=== PATIENT | male | born 1970 | race Caucasian/White ===

== ENCOUNTER 2018-08-03 20:44 | Inpatient (IN) | payer SELFPAY ==
[~2018-08-03] VITALS: Ht 172.7 cm; Wt 64.6 kg
[2018-08-03 20:58] VITALS: Ht 172.7 cm; Wt 64.6 kg
[2018-08-04 00:18] LABS: BASOPHIL % 0.5 % (0-2)
[2018-08-04 00:25] LABS: PLATELET COUNT 500 x10^3mcL (130-400)
[2018-08-04 00:34] LABS: CALCIUM 8.2 mg/dL (8.5-10.1); CARBON DIOXIDE 28.8 mmol/L (21-32); CHLORIDE SERUM 100 mmol/L (98-107); GFR1 > 60 mL/min; GLUCOSE SERUM 108 mg/dL (74-106); POTASSIUM SERUM 4.1 mmol/L (3.5-5.1); SODIUM SERUM 138 mmol/L (136-145)
[2018-08-04 00:39] LABS: ALBUMIN 3.4 g/dL (3.4-5.0); ALKALINE PHOSPHATASE 80 U/L (46-116); ALT/SGPT 25 U/L (16-63); AST/SGOT 17 U/L (15-37); BILIRUBIN TOTAL 0.3 mg/dL (0.20-1.00); LIPASE 138 IU/L (73-393); TOTAL PROTEIN, SERUM 7.2 g/dL (6.4-8.2)
[2018-08-04 06:37] LABS: MAGNESIUM 2.1 mg/dL (1.8-2.4); PHOSPHOROUS 4.1 mg/dL (2.5-4.9)
[2018-08-04 08:11] VITALS: BP 106/66
[2018-08-04 08:21] LABS: UA SPECIFIC GRAVITY >=1.030 (1.005-1.035); microscopic required? YES; urine erythrocyte NEGATIVE (NEGATIVE)
[2018-08-04 08:33] LABS: AMPHETAMINE QUAL UR POSITIVE (See below)
[2018-08-04 11:45] VITALS: BP 103/70
[2018-08-04 17:07] VITALS: BP 106/63
[2018-08-04 20:00] VITALS: BP 110/64
[2018-08-05 00:29] LABS: BASOPHIL % 0.8 % (0-2)
[2018-08-05 00:33] LABS: PLATELET COUNT 466 x10^3mcL (130-400); RED CELL DISTRIBUTION WIDTH 18.2 % (11.5-14.5)
[2018-08-05 00:37] LABS: rbc morphology (normal/abnorm) ABNORMAL (NORMAL)
[2018-08-05 05:44] VITALS: BP 121/75
[2018-08-05 09:12] VITALS: BP 121/72
[2018-08-05 09:27] LABS: CARBON DIOXIDE 29.6 mmol/L (21-32); CHLORIDE SERUM 108 mmol/L (98-107); GFR1 > 60 mL/min; GLUCOSE SERUM 125 mg/dL (74-106); MAGNESIUM 2.1 mg/dL (1.8-2.4); PHOSPHOROUS 3.5 mg/dL (2.5-4.9); POTASSIUM SERUM 4.4 mmol/L (3.5-5.1); SODIUM SERUM 144 mmol/L (136-145)
[2018-08-05 09:41] LABS: BASOPHIL % 0.3 % (0-2); PLATELET COUNT 436 x10^3mcL (130-400); RED CELL DISTRIBUTION WIDTH 18.4 % (11.5-14.5)
[2018-08-05 13:35] VITALS: BP 115/52
[2018-08-05 17:25] VITALS: BP 104/70
[2018-08-05 21:01] VITALS: BP 98/60
[2018-08-06 05:13] VITALS: BP 120/72
[2018-08-06 06:18] LABS: BASOPHIL % 0.9 % (0-2)
[2018-08-06 06:19] LABS: CALCIUM 8.1 mg/dL (8.5-10.1); CARBON DIOXIDE 27.8 mmol/L (21-32); CHLORIDE SERUM 108 mmol/L (98-107); CREATININE SERUM 0.9 mg/dL (0.7-1.3); GFR1 > 60 mL/min; GLUCOSE SERUM 91 mg/dL (74-106); MAGNESIUM 2.4 mg/dL (1.8-2.4); PHOSPHOROUS 4.4 mg/dL (2.5-4.9); POTASSIUM SERUM 4.2 mmol/L (3.5-5.1); SODIUM SERUM 143 mmol/L (136-145)
[2018-08-06 08:13] LABS: PLATELET COUNT 481 x10^3mcL (130-400); RED CELL DISTRIBUTION WIDTH 18.4 % (11.5-14.5)
[2018-08-06] MEDS ORDERED: PRI20 PO (12:56)
[2018-08-06 13:00] VITALS: BP 125/63
[2018-08-06] MEDS ORDERED: AMO500 PO (13:00)
[2018-08-06] MEDS ORDERED: BIA500 PO (13:00)
== END 2018-08-06 13:41 | disposition home or self-care (01) | DRG 383 ==
LOC: ED 20:44 → DU 08-04 05:26 → EDBEDREQTM 08-04 05:33 → EDBEDREQSVC 08-04 05:33 → EDBEDREQ 08-04 05:33 → DU 08-04 08:10
PROVIDERS: Internal Medicine; Internal Medicine Gastroenterology; Student in an Organized Health Care Education/Training Program
PROC: 0DB68ZX Excision of Stomach, Via Natural or Artificial Opening Endoscopic, Diagnostic (ICD-10-PCS; principal; 2018-08-06 07:30)
PROC: 0DJD8ZZ Inspection of Lower Intestinal Tract, Via Natural or Artificial Opening Endoscopic (ICD-10-PCS; 2018-08-06 07:30)
DX: K25.9 Gastric ulcer, unspecified as acute or chronic, without hemorrhage or perforation (principal); N17.0 Acute kidney failure with tubular necrosis; E44.1 Mild protein-calorie malnutrition; K64.8 Other hemorrhoids; K57.90 Diverticulosis of intestine, part unspecified, without perforation or abscess without bleeding; D64.9 Anemia, unspecified; R73.03 Prediabetes; K59.00 Constipation, unspecified; F17.210 Nicotine dependence, cigarettes, uncomplicated; F15.10 Other stimulant abuse, uncomplicated; F12.10 Cannabis abuse, uncomplicated; Z71.3 Dietary counseling and surveillance; E83.51 Hypocalcemia; B96.81 Helicobacter pylori [H. pylori] as the cause of diseases classified elsewhere; Z68.23 Body mass index [BMI] 23.0-23.9, adult
CPT/HCPCS: 43235; 45378; 83880; C9113; J1200; J1610; J2250; J2310; J2405; J2765; J3010; J3490; J7030; J7050; P9016; Q0163; Q9967

== ENCOUNTER 2018-09-24 10:35 | Emergency (ER) | payer MEDICAID ==
[~2018-09-24] VITALS: Ht 172.7 cm; Wt 70.3 kg
[~2018-09-24 10:35] MED LIST: AMO500 PO; BIA500 PO; PRI20 PO
[2018-09-24 10:45] VITALS: Ht 172.7 cm; Wt 70.3 kg
[2018-09-24 11:34] LABS: CALCIUM 8.1 mg/dL (8.5-10.1); CARBON DIOXIDE 31.6 mmol/L (21-32); CHLORIDE SERUM 103 mmol/L (98-107); CREATININE SERUM 0.9 mg/dL (0.7-1.3); GFR1 > 60 mL/min; GLUCOSE SERUM 121 mg/dL (74-106); POTASSIUM SERUM 4.3 mmol/L (3.5-5.1); SODIUM SERUM 141 mmol/L (136-145)
[2018-09-24 11:38] LABS: ALBUMIN 3.5 g/dL (3.4-5.0); ALKALINE PHOSPHATASE 86 U/L (46-116); AST/SGOT 16 U/L (15-37); BILIRUBIN TOTAL 0.18 mg/dL (0.20-1.00); LIPASE 210 IU/L (73-393); TOTAL PROTEIN, SERUM 7.2 g/dL (6.4-8.2)
[2018-09-24 11:45] LABS: BASOPHIL % 1.2 % (0-2)
[2018-09-24 11:49] LABS: PLATELET COUNT 534 x10^3mcL (130-400); RED CELL DISTRIBUTION WIDTH 19.6 % (11.5-14.5)
[2018-09-24 11:50] VITALS: BP 133/83
[2018-09-24 11:57] LABS: ALT/SGPT 23 U/L (16-63)
== END 2018-09-24 12:42 | disposition home or self-care (01) ==
LOC: ED 10:35
PROVIDERS: Emergency Medicine
DX: K27.9 Peptic ulcer, site unspecified, unspecified as acute or chronic, without hemorrhage or perforation (principal); D64.9 Anemia, unspecified; F17.210 Nicotine dependence, cigarettes, uncomplicated
CPT/HCPCS: 99406; C9113; J2270; J2405; J7030

== ENCOUNTER 2018-11-26 23:04 | Inpatient (IN) | payer OTHER ==
[~2018-11-26] VITALS: Ht 172.7 cm; Wt 69.1 kg
[2018-11-26 23:39] VITALS: Ht 172.7 cm; Wt 69.1 kg
[2018-11-27 00:47] LABS: CALCIUM 8.4 mg/dL (8.5-10.1); CARBON DIOXIDE 28.3 mmol/L (21-32); CHLORIDE SERUM 105 mmol/L (98-107); CREATININE SERUM 1.1 mg/dL (0.7-1.3); GFR1 > 60 mL/min; GLUCOSE SERUM 122 mg/dL (74-106); SODIUM SERUM 137 mmol/L (136-145)
[2018-11-27 00:51] LABS: ALKALINE PHOSPHATASE 65 U/L (46-116); ALT/SGPT 18 U/L (16-63); AST/SGOT 20 U/L (15-37); BILIRUBIN TOTAL 0.1 mg/dL (0.20-1.00); LIPASE 118 IU/L (73-393); TOTAL PROTEIN, SERUM 6.8 g/dL (6.4-8.2)
[2018-11-27 00:52] LABS: ALBUMIN 3.3 g/dL (3.4-5.0)
[2018-11-27 01:32] LABS: BASOPHIL % 0.3 % (0-2)
[2018-11-27 01:34] LABS: PLATELET COUNT 459 x10^3mcL (130-400); RED CELL DISTRIBUTION WIDTH 20.2 % (11.5-14.5)
[2018-11-27 01:36] LABS: rbc morphology (normal/abnorm) ABNORMAL (NORMAL)
[2018-11-27 02:53] VITALS: BP 122/95
[2018-11-27 02:54] LABS: CHOLESTEROL/HDL RATIO 4.2; PHOSPHOROUS 3.9 mg/dL (2.5-4.9)
[2018-11-27 04:48] LABS: microscopic required? NO
[2018-11-27 05:18] LABS: UA SPECIFIC GRAVITY 1.025 (1.005-1.035); urine erythrocyte NEGATIVE (NEGATIVE)
[2018-11-27 05:23] LABS: AMPHETAMINE QUAL UR POSITIVE (See below)
[2018-11-27 06:00] VITALS: BP 116/76
[2018-11-27 07:43] VITALS: BP 126/73
[2018-11-27 11:08] VITALS: BP 115/74
[2018-11-27 16:11] VITALS: BP 114/72
[2018-11-27 16:31] LABS: BASOPHIL % 1.2 % (0-2); PLATELET COUNT 458 x10^3mcL (130-400); RED CELL DISTRIBUTION WIDTH 24.6 % (11.5-14.5)
[2018-11-27 20:29] VITALS: BP 102/52
[2018-11-28 05:37] VITALS: BP 113/68
[2018-11-28 08:21] LABS: BASOPHIL % 0.8 % (0-2)
[2018-11-28 08:30] LABS: PLATELET COUNT 549 x10^3mcL (130-400); RED CELL DISTRIBUTION WIDTH 22.1 % (11.5-14.5)
[2018-11-28 09:37] LABS: CALCIUM 7.9 mg/dL (8.5-10.1); CARBON DIOXIDE 28.3 mmol/L (21-32); CHLORIDE SERUM 106 mmol/L (98-107); CREATININE SERUM 0.9 mg/dL (0.7-1.3); GFR1 > 60 mL/min; GLUCOSE SERUM 100 mg/dL (74-106); MAGNESIUM 2.1 mg/dL (1.8-2.4); PHOSPHOROUS 3.8 mg/dL (2.5-4.9); POTASSIUM SERUM 4.1 mmol/L (3.5-5.1); SODIUM SERUM 142 mmol/L (136-145)
[2018-11-28 10:13] VITALS: BP 126/71
[2018-11-28 10:19] LABS: rbc morphology (normal/abnorm) ABNORMAL (NORMAL); target cell (codocyte) 1+; tear drop cell (dacryocyte) 1+
[2018-11-28] MEDS ORDERED: AMO500 PO (10:58)
[2018-11-28] MEDS ORDERED: CLARITHROMYCIN500 M1 PO (11:00)
[2018-11-28] MEDS ORDERED: FER300 PO (11:00)
[2018-11-28] MEDS ORDERED: FLAGYL500 MG PO (11:01)
[2018-11-28 11:33] VITALS: BP 126/71
[2018-11-28] MEDS ORDERED: PANTOPRAZOLE SO40 M1 PO (13:41)
== END 2018-11-28 13:59 | disposition home or self-care (01) | DRG 243 ==
LOC: ED 23:04 → MU 11-27 02:15
PROVIDERS: Emergency Medicine; Internal Medicine; ADMIT Internal Medicine
PROC: 0DB68ZX Excision of Stomach, Via Natural or Artificial Opening Endoscopic, Diagnostic (ICD-10-PCS; principal; 2018-11-27 10:00)
PROC: 30233N1 Transfusion of Nonautologous Red Blood Cells into Peripheral Vein, Percutaneous Approach (ICD-10-PCS; 2018-11-27 10:00)
DX: K22.10 Ulcer of esophagus without bleeding (principal); N17.9 Acute kidney failure, unspecified; K29.71 Gastritis, unspecified, with bleeding; E11.65 Type 2 diabetes mellitus with hyperglycemia; E83.51 Hypocalcemia; E44.1 Mild protein-calorie malnutrition; D50.0 Iron deficiency anemia secondary to blood loss (chronic); F12.10 Cannabis abuse, uncomplicated; E78.1 Pure hyperglyceridemia; F15.10 Other stimulant abuse, uncomplicated; K44.9 Diaphragmatic hernia without obstruction or gangrene; K21.9 Gastro-esophageal reflux disease without esophagitis; F17.210 Nicotine dependence, cigarettes, uncomplicated; E86.0 Dehydration
CPT/HCPCS: 43235; 82962; C9113; J1200; J1610; J2250; J2270; J2310; J2405; J3010; J3490; J7030; P9016; Q0092

== ENCOUNTER 2019-01-07 12:24 | Emergency (ER) | payer OTHER ==
[~2019-01-07] VITALS: Ht 170.2 cm; Wt 68.0 kg
[~2019-01-07 12:24] MED LIST changes: +CLARITHROMYCIN500 M1 PO; +FER300 PO; +FLAGYL500 MG PO; +PANTOPRAZOLE SO40 M1 PO
[2019-01-07 12:52] VITALS: Ht 170.2 cm; Wt 68.0 kg
[2019-01-07 13:57] LABS: PLATELET COUNT 569 x10^3mcL (130-400); RED CELL DISTRIBUTION WIDTH 23.8 % (11.5-14.5)
[2019-01-07 14:03] LABS: CALCIUM 8.4 mg/dL (8.5-10.1); CHLORIDE SERUM 105 mmol/L (98-107); CREATININE SERUM 1.1 mg/dL (0.7-1.3); GFR1 > 60 mL/min; GLUCOSE SERUM 107 mg/dL (74-106); POTASSIUM SERUM 4.4 mmol/L (3.5-5.1); SODIUM SERUM 142 mmol/L (136-145)
[2019-01-07 14:07] LABS: ALBUMIN 3.8 g/dL (3.4-5.0); ALKALINE PHOSPHATASE 73 U/L (46-116); ALT/SGPT 66 U/L (16-63); AMYLASE 28 U/L (25-115); AST/SGOT 54 U/L (15-37); BILIRUBIN TOTAL 0.21 mg/dL (0.20-1.00); LIPASE 128 IU/L (73-393); TOTAL PROTEIN, SERUM 7.7 g/dL (6.4-8.2)
[2019-01-07 14:38] LABS: BAND NEUTROPHIL 0 % (0-10); SEGMENTED NEUTROPHILS 92 % (37-75)
[2019-01-07 14:39] LABS: MONOCYTE 3 % (0-7); rbc morphology (normal/abnorm) ABNORMAL (NORMAL)
[2019-01-07 15:08] VITALS: BP 131/82
[2019-01-08] MEDS ORDERED: ZOF4 PO (11:28)
[2019-01-08] MEDS ORDERED: ULTRAM50 MG PO (11:28)
[2019-01-08] MEDS ORDERED: MAGL PO (11:29)
== END 2019-01-07 15:08 | disposition home or self-care (01) ==
LOC: ED 12:24
PROVIDERS: Emergency Medicine
DX: K59.00 Constipation, unspecified (principal); K21.9 Gastro-esophageal reflux disease without esophagitis
CPT/HCPCS: J1885; J2405; Q0092

== ENCOUNTER 2019-01-08 08:56 | Inpatient (IN) | payer OTHER ==
[~2019-01-08] VITALS: Ht 170.2 cm; Wt 60.1 kg
[2019-01-08 09:07] VITALS: Ht 170.2 cm; Wt 60.1 kg
[2019-01-08 10:24] LABS: BASOPHIL % 0.4 % (0-2)
[2019-01-08 10:25] LABS: RED CELL DISTRIBUTION WIDTH 23.4 % (11.5-14.5)
[2019-01-08 10:32] LABS: PLATELET COUNT 519 x10^3mcL (130-400)
[2019-01-08 10:34] LABS: rbc morphology (normal/abnorm) ABNORMAL (NORMAL)
[2019-01-08 10:46] LABS: CALCIUM 7.4 mg/dL (8.5-10.1); CARBON DIOXIDE 32.4 mmol/L (21-32); CHLORIDE SERUM 102 mmol/L (98-107); CREATININE SERUM 0.8 mg/dL (0.7-1.3); GFR1 > 60 mL/min; GLUCOSE SERUM 108 mg/dL (74-106); POTASSIUM SERUM 4.8 mmol/L (3.5-5.1); SODIUM SERUM 138 mmol/L (136-145)
[2019-01-08 10:52] LABS: ALKALINE PHOSPHATASE 57 U/L (46-116); ALT/SGPT 55 U/L (16-63); AST/SGOT 38 U/L (15-37); LIPASE 131 IU/L (73-393); TOTAL PROTEIN, SERUM 6.4 g/dL (6.4-8.2)
[2019-01-08 10:59] LABS: ALBUMIN 3.1 g/dL (3.4-5.0)
[2019-01-08] MEDS ORDERED: ULTRAM50 MG PO (11:28)
[2019-01-08] MEDS ORDERED: ZOF4 PO (11:28)
[2019-01-08] MEDS ORDERED: MAGL PO (11:29)
[2019-01-08 12:36] VITALS: BP 138/71
[2019-01-08 14:11] LABS: CHOLESTEROL/HDL RATIO 3.5
[2019-01-08 15:30] VITALS: BP 122/68
[2019-01-08 19:55] VITALS: BP 124/86
[2019-01-09 04:44] VITALS: BP 124/72
[2019-01-09 07:26] LABS: BASOPHIL % 0.6 % (0-2)
[2019-01-09 07:29] LABS: PLATELET COUNT 483 x10^3mcL (130-400); RED CELL DISTRIBUTION WIDTH 24.3 % (11.5-14.5)
[2019-01-09 07:32] LABS: CALCIUM 7.9 mg/dL (8.5-10.1); CARBON DIOXIDE 28.3 mmol/L (21-32); CHLORIDE SERUM 105 mmol/L (98-107); CREATININE SERUM 0.8 mg/dL (0.7-1.3); GFR1 > 60 mL/min; GLUCOSE SERUM 90 mg/dL (74-106); POTASSIUM SERUM 4.7 mmol/L (3.5-5.1); SODIUM SERUM 140 mmol/L (136-145)
[2019-01-09 08:21] VITALS: BP 125/77
[2019-01-09 09:51] LABS: microscopic required? NO
[2019-01-09 10:00] LABS: target cell (codocyte) 1+
[2019-01-09 10:01] LABS: ovalocyte/elliptocyte 1+; rbc morphology (normal/abnorm) ABNORMAL (NORMAL); tear drop cell (dacryocyte) 1+
[2019-01-09 10:16] LABS: UA SPECIFIC GRAVITY 1.015 (1.005-1.035); urine erythrocyte NEGATIVE (NEGATIVE)
[2019-01-09 11:52] VITALS: BP 142/78
[2019-01-09 18:28] VITALS: BP 111/65
[2019-01-09 19:19] LABS: TOTAL IRON BINDING CAPACITY 333 ug/dL (250-450)
[2019-01-09 19:20] LABS: IRON 10 ug/dL (65-170)
[2019-01-09 19:23] LABS: AMPHETAMINE QUAL UR POSITIVE (See below)
[2019-01-09 19:57] VITALS: BP 114/65
[2019-01-10 05:01] VITALS: BP 124/79
[2019-01-10 08:25] VITALS: BP 110/68
[2019-01-10 08:27] LABS: PLATELET COUNT 476 x10^3mcL (130-400); RED CELL DISTRIBUTION WIDTH 25.9 % (11.5-14.5)
[2019-01-10 08:36] LABS: CALCIUM 7.9 mg/dL (8.5-10.1); CARBON DIOXIDE 31.1 mmol/L (21-32); CHLORIDE SERUM 107 mmol/L (98-107); CREATININE SERUM 0.8 mg/dL (0.7-1.3); GFR1 > 60 mL/min; GLUCOSE SERUM 123 mg/dL (74-106); POTASSIUM SERUM 4.1 mmol/L (3.5-5.1); SODIUM SERUM 141 mmol/L (136-145)
[2019-01-10 09:18] LABS: ATYPICAL LYMPH 3 %; BAND NEUTROPHIL 0 % (0-10); BASOPHIL 0 % (0-2); MONOCYTE 2 % (0-7); SEGMENTED NEUTROPHILS 85 % (37-75)
[2019-01-10 09:19] LABS: rbc morphology (normal/abnorm) ABNORMAL (NORMAL)
[2019-01-10 09:21] LABS: PLATELET MORPHOLOGY PLATELETS INCREASED; target cell (codocyte) 1+
[2019-01-10 10:23] VITALS: BP 110/68
== END 2019-01-10 11:27 | disposition home or self-care (01) | DRG 241 ==
LOC: ED 08:56 → EDBD 08:56 → DU 10:59
PROVIDERS: Emergency Medicine; Internal Medicine Gastroenterology; ADMIT General Practice
PROC: 30233N1 Transfusion of Nonautologous Red Blood Cells into Peripheral Vein, Percutaneous Approach (ICD-10-PCS; principal; 2019-01-08)
PROC: 0DJ08ZZ Inspection of Upper Intestinal Tract, Via Natural or Artificial Opening Endoscopic (ICD-10-PCS; 2019-01-09)
DX: K29.71 Gastritis, unspecified, with bleeding (principal); E44.1 Mild protein-calorie malnutrition; D50.0 Iron deficiency anemia secondary to blood loss (chronic); R06.6 Hiccough; R10.13 Epigastric pain; F12.10 Cannabis abuse, uncomplicated; F15.10 Other stimulant abuse, uncomplicated; Z87.891 Personal history of nicotine dependence; Z53.29 Procedure and treatment not carried out because of patient's decision for other reasons
CPT/HCPCS: 43235; 83880; C9113; J1200; J1610; J2250; J2310; J2405; J3010; J3490; J7030; J7040; J8597; P9016; Q0161

== ENCOUNTER 2019-05-28 21:05 | Inpatient (IN) | payer OTHER ==
[~2019-05-28] VITALS: Ht 177.8 cm; Wt 68.5 kg
[~2019-05-28 21:05] MED LIST changes: +MAGL PO; +ULTRAM50 MG PO; +ZOF4 PO
[2019-05-28 21:14] VITALS: Ht 177.8 cm; Wt 68.5 kg
[2019-05-28 22:17] LABS: BASOPHIL % 0.3 % (0-2); PLATELET COUNT 439 x10^3mcL (130-400); RED CELL DISTRIBUTION WIDTH 23.5 % (11.5-14.5)
[2019-05-28 22:20] LABS: CALCIUM 8.6 mg/dL (8.5-10.1); CARBON DIOXIDE 29.4 mmol/L (21-32); CHLORIDE SERUM 103 mmol/L (98-107); GFR1 > 60 mL/min; GLUCOSE SERUM 114 mg/dL (74-106); POTASSIUM SERUM 3.9 mmol/L (3.5-5.1); SODIUM SERUM 139 mmol/L (136-145)
[2019-05-28 22:25] LABS: ALKALINE PHOSPHATASE 62 U/L (46-116); ALT/SGPT 18 U/L (16-63); AST/SGOT 9 U/L (15-37); BILIRUBIN TOTAL 0.15 mg/dL (0.20-1.00); TOTAL PROTEIN, SERUM 6.4 g/dL (6.4-8.2)
[2019-05-28 22:28] LABS: rbc morphology (normal/abnorm) ABNORMAL (NORMAL)
[2019-05-28 22:29] LABS: ALBUMIN 3.2 g/dL (3.4-5.0)
--- NOTE | 2019-05-28 22:43 | NUR ---
PT RESTING IN BED, AAOX4 WITH C/O 8/10 GENERALIZED ABD PAIN X 1 WEEK WITH N/V. PT ALSO WITH C/O CONSTIPATION FOR 2-3 DAYS WITH DARK STOOLS PRIOR X 1 WEEK AND FEVER/CHILLS X 4 DAYS. PT DENIES ANY RECENT RESP ILLNESS OR PAINFUL URINATION. PT ALSO DENIES ANY RECENT TRAUMA/INJURY. PT STATES 'I HAVE BEEN VOMITING COFFEE GROUNDS'. SIGNIFICANT OTHER AT BEDSIDE.
--- NOTE | 2019-05-28 23:58 | NUR ---
PT RESTING IN BED WITH NO SIGNS OF DISTRESS AT THIS TIME. FAMILY AT BEDSIDE.
[2019-05-29] VITALS (10 sets, daily range): BP systolic 97–126; BP diastolic 62–79
--- NOTE | 2019-05-29 00:11 | NUR ---
REPORT GIVEN TO NICO MARY.
--- NOTE | 2019-05-29 00:35 | NUR ---
RECEIVED PT FROM ER VIA GURENY ACCOMPANIED WITH NURSE AND EMT, PT SEEN, ALERT AND ORIENTED, DENIES HEADACHE OR DIZZINESS, BREATHING EVEN AND UNLABORED, LUNG SOUNDS CLEAR, ON ROOM AIR WITH SPO2:98%, NO RESP DISTRESS NOTED, SL TO LFA, PULSES PALPABLE, NO EDEMA NOTED, ON TELE#2 ST, DENIES CHEST PAIN, GENERALIZED WEAKNESS, ABD DISTENDED BUT SOFT, TENDER TO TOUCH, DENIES ANY PROBLEM WITH VOIDING, NO DISTRESS NOTED, WILL KEEP TO MONITOR.
[2019-05-29 00:37] LABS: CHOLESTEROL/HDL RATIO 4.6
[2019-05-29 00:39] LABS: T3 TOTAL 0.97 ng/mL
[2019-05-29 01:04] LABS: FREE T4 0.82 ng/dL (0.76-1.46); T4(THYROXINE) 6.2 ug/dL (4.7-13.3)
--- NOTE | 2019-05-29 01:49 | NUR ---
PT AAOX4. PT MADE AWARE OF BLOOD TRANSFUSION AND SIDE EFFECTS/REACTIONS. PT VERBALIZED UNDERSTANDING. VS STABLE. BLOOD TRANSFUSE STARTED AT 0130. STAYED WITH PT AT BEDSIDE FOR FIRST 15 MIN, NO REACTION. VS RECHECKED AND STABLE. WILL CONTINUE WITH BLOOD TRANSFUSION. NO CALL BUTTON WITHIN REACH. SAFETY PRECAUTIONS IN PLACE. WILL CONTINUE TO MONITOR.
--- NOTE | 2019-05-29 02:18 | NUR ---
PER DR CARROLL, BLOOD TRANSFUSION ORDER IS FOR 2 UNITS TOTAL.
--- NOTE | 2019-05-29 04:40 | NUR ---
FIRST UNIT OF BLOOD TRANSFUSION COMPLETED AT THIS TIME. NO ADVERSE REACTION NOTED. PER PT HE FEELS FINE. NO SIGNS OF DISTRESS. VS STABLE. MEDICATED PER EMAR.
--- NOTE | 2019-05-29 05:45 | NUR ---
PT VS STABLE. SECOND UNIT OF BLOOD TRANSFUING AT THIS TIME. PT MADE AWARE OF POSSIBLE REACTIONS AND SIDE EFFECTS. PT VERBALIZED UNDERSTANDING. STAYED WITH PT FOR THE FIRST 15 MINUTES, NO REACTION NOTED. VS STABLE. CALL BUTTON WITHIN REACH. SAFETY PRECAUTIONS IN PLACE. WILL CONTINUE TO MONITOR.
[2019-05-29 06:31] LABS: CALCIUM 8.1 mg/dL (8.5-10.1); CARBON DIOXIDE 26.6 mmol/L (21-32); CHLORIDE SERUM 105 mmol/L (98-107); CREATININE SERUM 0.9 mg/dL (0.7-1.3); GFR1 > 60 mL/min; GLUCOSE SERUM 86 mg/dL (74-106); POTASSIUM SERUM 4.2 mmol/L (3.5-5.1); SODIUM SERUM 140 mmol/L (136-145)
--- NOTE | 2019-05-29 06:41 | NUR ---
PT SLEPT ON AND OFF THROUGHOUT THE NIGHT WITH NO SIGNS OF DISTRESS. BREATHING EVEN AND UNLABORED ON RA, WITH NO SOB NOTED. IV PATENT AND INFUSING WELL. BLOOD TRANSFUSION CONTINUE TO INFUSE AT THIS TIME. NO ADVERSE REACTION. PT MEDICATED PER EMAR. NO SIGNS OF ACUTE DISTRESS. CALL BUTTON WITIN REACH. SAFETY PRECAUTIONS IN PLACE. WILL CONTINUE TO MONITOR AND ENDORSE CARE TO DAY SHIFT RN.
--- NOTE | 2019-05-29 07:29 | NUR ---
PT IN NO DISTRESS. ENDORSED CARE TO DAY SHIFT RN, ALL QUESTIONS ADDRESSED.
--- NOTE | 2019-05-29 07:54 | NUR ---
RECEIVED PATIENT FROM TYRA WALSH. PATIENT CURRENTLY SLEEPING IN BED, NO S/S OF PAIN OR SOB. BLOOD TRANSFUSION CURRENTLY INFUSING, NO SIGNS OF ADVERSE REACTIONS. WILL RETURN TO SPEAK WITH PATIENT ABOUT PLAN OF CARE TODAY, PATIENT STILL NPO. CALL LIGHT IN REACH.
[2019-05-29 08:44] LABS: BASOPHIL % 0.5 % (0-2); PLATELET COUNT 397 x10^3mcL (130-400)
[2019-05-29 08:48] LABS: RED CELL DISTRIBUTION WIDTH 23.7 % (11.5-14.5)
--- NOTE | 2019-05-29 10:07 | NUR ---
DR ABDI IN TO SPEAK WITH PATIENT ABOUT EGD. PATIENT AGREES, CONSENT SIGNED AND DOWN TO GI LAB. PATIENT REPORT GIVEN AT 1008 FOR PATIENT RETURN TO ROOM. WILL CALL CT FOR ADDITIONAL TEST. WILL AWAIT FOR PATIENT RETURN.
--- NOTE | 2019-05-29 10:14 | NUR ---
PATIENT HAS RETURNED TO UNIT. VS STABLE. WILL CONTACT CT FOR SCAN.
--- NOTE | 2019-05-29 10:48 | NUR ---
PATIENT RETURNED TO UNIT FROM CT SCAN. PATIENT SLEEPING NO SIGNS OF DISCOMFORT OR PAIN AT THIS TIME. CALL LIGHT IN REACH.
[2019-05-29 11:13] LABS: ovalocyte/elliptocyte 1+; rbc morphology (normal/abnorm) ABNORMAL (NORMAL); target cell (codocyte) 1+
--- NOTE | 2019-05-29 12:33 | NUR ---
PATIENT CONTINUES TO BE SLEEPING IN BED, NO S/S OF DISTRESS, PAIN, OR SOB. WILL CONTINUE TO MONITOR. CALL LIGHT IN REACH.
[2019-05-29 13:44] LABS: microscopic required? NO
[2019-05-29 14:07] LABS: urine erythrocyte NEGATIVE (NEGATIVE)
[2019-05-29 14:15] LABS: AMPHETAMINE QUAL UR POSITIVE (See below)
[2019-05-29 14:22] LABS: BASOPHIL % 0.4 % (0-2); PLATELET COUNT 399 x10^3mcL (130-400)
[2019-05-29 14:33] LABS: ALKALINE PHOSPHATASE 54 U/L (46-116); ALT/SGPT 21 U/L (16-63); AST/SGOT 14 U/L (15-37); BILIRUBIN TOTAL 0.4 mg/dL (0.20-1.00); CALCIUM 8.2 mg/dL (8.5-10.1); CARBON DIOXIDE 29.9 mmol/L (21-32); CHLORIDE SERUM 102 mmol/L (98-107); GFR1 > 60 mL/min; GLUCOSE SERUM 124 mg/dL (74-106); SODIUM SERUM 139 mmol/L (136-145)
--- NOTE | 2019-05-29 15:34 | NUR ---
THIS NURSE PREPARE FURTHER BLOOD TRANSFUSION PER DR MENDOZA. BLOOD WAS BEING PREPARED, LAB RESULTS CAME IN FOR HGB OF 8.2. NOTIFIED DR MENDOZA, DR VERDE, AND CHARGE NURSE NITHIN. CALL PLACED TO BLOOD BANK AND CHAIR PAD MAKER STATES BLOOD CAN BE RETURNED. NOTIFIED DR MENDOZA, DR VERDE, AND CHARGE NURSE NITHIN. DR MENDOZA AND THIS NURSE SPOKE WITH PATIENT AND FRIEND ABOUT BLOOD LEVELS AND PATIENT VERBALIZED UNDERSTANDING. CALL LIGHT IN REACH AT THIS TIME.
--- NOTE | 2019-05-29 18:33 | NUR ---
PATIENT SEATED IN BED WITH NO COMPLAINTS. PATIENT TOLERATING DINNER TRAY. WILL ENDORSE TO ONCOMING SHIFT. CALL LIGHT IN REACH AT THIS TIME.
--- NOTE | 2019-05-29 19:32 | NUR ---
RECEIVED PT FROM DAY SHIFT RN. PT AAOX4 DENIES HEADACHE OR DIZZINESS. BREATHING EVEN AND UNLABORED WITH NO SOB NOTED. TELE #2 SR, HR 97. PT DENIES CHEST PAIN OR PRESSURE. IV PATENT, INFUSING WELL. PT DENIES ANY ABD PAIN/N/V AT THIS TIME. GENERALIZED WEAKNESS. PT AMBULATORY. CALL BUTTON WITHIN REACH. SAFETY PRECAUTIONS IN PLACE. WILL CONTINUE TO MONITOR.
--- NOTE | 2019-05-30 01:13 | NUR ---
PT RESTING, BREATHING EVEN AND UNLABORED. NO SOB NOTED. NO SIGNS OF DISTRESS NOTED. CALL BUTTON WITHIN REACH. SAFETY PRECAUTIONS IN PLACE.
--- NOTE | 2019-05-30 03:00 | NUR ---
PT RESTING, BREATHING EVEN AND UNLABORED ON NC 3L/MIN WITH NO SOB NOTED. ASPIRATION PRECAUTIONS IN PLACE. SOFT BILATERAL WRITST RESTRAINTS ON. SKIN/CIRCULATION WNL. SAFETY PRECAUTIONS IN PLACE. SEIZURE PRECAUTIONS IN PLACE. WILL CONTINUE TO MONITOR.
--- NOTE | 2019-05-30 03:30 | NUR ---
PT RESTING, BREATHING EVEN AND UNLABORED. NO SOB NOTED. NO SIGNS OF DISTRESS NOTED. CALL BUTTON WITHIN REACH. SAFETY PRECAUTIONS IN PLACE.
--- NOTE | 2019-05-30 05:09 | NUR ---
PT SLEPT ON AND OFF THROUGHOUT THE NIGHT WITH NO SIGNS OF DISTRESS. BREATHING EVEN AND UNLABORED ON RA, WITH NO SOB NOTED. IV PATENT AND INFUSING WELL. PT MEDICATED PER EMAR. NO SIGNS OF ACUTE DISTRESS. CALL BUTTON WITIN REACH. SAFETY PRECAUTIONS IN PLACE. WILL CONTINUE TO MONITOR AND ENDORSE CARE TO DAY SHIFT RN.
[2019-05-30 05:22] VITALS: BP 115/71
[2019-05-30 06:55] LABS: CALCIUM 7.7 mg/dL (8.5-10.1); CHLORIDE SERUM 105 mmol/L (98-107); GFR1 > 60 mL/min; GLUCOSE SERUM 136 mg/dL (74-106); MAGNESIUM 2.4 mg/dL (1.8-2.4); PHOSPHOROUS 3.8 mg/dL (2.5-4.9); POTASSIUM SERUM 3.6 mmol/L (3.5-5.1); SODIUM SERUM 141 mmol/L (136-145)
--- NOTE | 2019-05-30 07:14 | NUR ---
PT RESTING, NO SIGNS OF ACUTE DISTRESS NOTED. ENDORSED CARE TO DAY SHIFT RN, ALL QUESTIONS ADDRESSED.
--- NOTE | 2019-05-30 08:00 | NUR ---
PATIENT RECEIVED ANXIOUS ABOUT HIS FOOD. HE STATES A NURSE CAME IN AND STATES HE CAN HAVE A REGULAR DIET AGAIN. NO ORDERS YET NOTED AND PATIENT DID HAVE AN ORDER FOR IV FLUIDS CHANGED BUT NO DIET ORDER FROM THE BRAT DIET OF THE JPREVIOUS NIGHT. PATIENT HAS BEEN WITH CLEAR BREATH SOUNDS AND HAS BEEN ON PROTONIX AND SENOKOT AND HAS NO ACTIVE BLEEDING AT THIS TIME. ALETA TWIHT HISTORY OF GERD AND METH AND MARIJUANA USE AND HAS BEEN AMBULATORY ADN NO WEAKNESS NOTED AT THIS TIME . HE TOLERATED OOB TO THE RESTROOM AND BACK. PATIENTS [facility]S ARE [facility] 8.01/09 AND HAD BLOOD THIS ADMISSION FOR LOW HEMAGLOBIN. PATILALITO TAHS EGD AND THE RESULTS SHOWA HIATAL HERANI AND NO ACTIVE BLEEDING WAS FOUND. APTIEN TIS FO RCAPSULE ENDOSCOPY AN OUTPATIENT. PATIENT AHS NOTED HISTOYR OF GASTRIC ULCER AND DIVERTICULOSIS. PATIENT HAS A NON OBSTRUCTIVE KIDNEY STONE AND CONTINUE DON FERRLECIT AND PROTONIX ORDERED. WILL CONTINUE TO MONITOR. VITALS THIS AM AT 98.0, 80, 19, 115/71, 97%.
--- NOTE | 2019-05-30 08:13 | NUR ---
CANCELLATION REQUESTED FOR ECHOCARDIOGRAM
[2019-05-30 09:21] VITALS: BP 112/73
--- NOTE | 2019-05-30 09:58 | NUR ---
ADVISED THE PATIENT THAT NO ORDER YET NOTED FOR THE DIET CHANGE. WILL NEED TO CALL THE HAIR ROOTING MACHINE OPERATOR PER THE PATIENT REQUEST.
[2019-05-30 12:44] VITALS: BP 120/75
--- NOTE | 2019-05-30 13:00 | NUR ---
TOLERATED DIET AND DENIES ANY NAUSEA, VOMITING OR DIARRHEA. NO ACTIVE BLEEDING NOTED. PATIENT HAS TOLERATE DOOB WELL AND DENIES ANY ACUTE PAIN. WILL CONTINUE TO MONITOR.
--- NOTE | 2019-05-30 13:14 | NUR ---
Consult: Malnourished Comment: decr. caloric intake, BMI 21, drinks Ensure at home, plz prov recs. Spoke with the patient and the patient denies having Ensure drinks at home. Offered nutrition education on iron rich foods for anemia but patient declined. Offered high calorie foods to pateint but patient declined as well. He said if he did have any nutrition questions that he would let the dietitians know. Per patient and bed huddles today patient will be discharged.
[2019-05-30] MEDS ORDERED: FERROUS SULFAT325 M2 PO (14:56)
[2019-05-30] MEDS ORDERED: ATORVASTATIN CA40 M1 PO (14:57)
[2019-05-30] MEDS ORDERED: REGLAN10 M1 PO (15:04)
[2019-05-30 15:19] VITALS: BP 120/75
--- NOTE | 2019-05-30 16:02 | NUR ---
DISCHARGED TO HOME WITH ALL BELONGINGS. IV AND TELE REMOVED PRIOR TO DISCHARGE. PATIENT TO FOLLOW UP WIT CAPSULE ENDO FOR VIEWING OF THE BOWEL AND RULING OUT SORCE OF THE GI BLEED. NO ACTIVE BLEEDING AT THIS TIME.
== END 2019-05-30 15:59 | disposition home or self-care (01) | DRG 241 ==
LOC: ED 21:05 → DU 23:42
PROVIDERS: Internal Medicine Gastroenterology; ADMIT Internal Medicine
PROC: 30233N1 Transfusion of Nonautologous Red Blood Cells into Peripheral Vein, Percutaneous Approach (ICD-10-PCS; 2019-05-29)
PROC: 0DJ08ZZ Inspection of Upper Intestinal Tract, Via Natural or Artificial Opening Endoscopic (ICD-10-PCS; principal; 2019-05-29 09:00)
DX: K29.71 Gastritis, unspecified, with bleeding (principal); N17.0 Acute kidney failure with tubular necrosis; E44.0 Moderate protein-calorie malnutrition; K57.93 Diverticulitis of intestine, part unspecified, without perforation or abscess with bleeding; D50.0 Iron deficiency anemia secondary to blood loss (chronic); F12.10 Cannabis abuse, uncomplicated; K31.84 Gastroparesis; E78.5 Hyperlipidemia, unspecified; K21.9 Gastro-esophageal reflux disease without esophagitis; F15.10 Other stimulant abuse, uncomplicated; F17.210 Nicotine dependence, cigarettes, uncomplicated; Z68.21 Body mass index [BMI] 21.0-21.9, adult
CPT/HCPCS: 43235; 84439; C9113; G0378; J1200; J1610; J2250; J2310; J2405; J2916; J3010; J3490; J7030; J7050; P9016; Q0092; Q0163

== ENCOUNTER 2019-06-19 19:16 | Emergency (ER) | payer OTHER ==
[~2019-06-19] VITALS: Ht 172.7 cm; Wt 68.0 kg
[~2019-06-19 19:16] MED LIST changes: +ATORVASTATIN CA40 M1 PO; +FERROUS SULFAT325 M2 PO; +REGLAN10 M1 PO
[2019-06-19 19:28] VITALS: Ht 172.7 cm; Wt 68.0 kg
[2019-06-19 20:05] LABS: BASOPHIL % 0.5 % (0-2)
[2019-06-19 20:08] LABS: PLATELET COUNT 471 x10^3mcL (130-400); RED CELL DISTRIBUTION WIDTH 22.3 % (11.5-14.5)
[2019-06-19 20:16] LABS: rbc morphology (normal/abnorm) ABNORMAL (NORMAL); schistocyte (helmet cell) 1+
[2019-06-19 20:22] LABS: CALCIUM 8.5 mg/dL (8.5-10.1); CARBON DIOXIDE 29.5 mmol/L (21-32); CHLORIDE SERUM 104 mmol/L (98-107); GFR1 > 60 mL/min; GLUCOSE SERUM 115 mg/dL (74-106); POTASSIUM SERUM 4.3 mmol/L (3.5-5.1); SODIUM SERUM 141 mmol/L (136-145)
[2019-06-19 20:26] LABS: ALKALINE PHOSPHATASE 59 U/L (46-116); ALT/SGPT 22 U/L (16-63); AST/SGOT 14 U/L (15-37); BILIRUBIN TOTAL 0.2 mg/dL (0.20-1.00)
[2019-06-19 20:30] LABS: ALBUMIN 3.1 g/dL (3.4-5.0)
[2019-06-19 22:30] VITALS: BP 128/79
== END 2019-06-19 22:30 | disposition home or self-care (01) ==
LOC: ED 19:16
PROVIDERS: Specialist
DX: D64.9 Anemia, unspecified (principal); K92.0 Hematemesis; K21.9 Gastro-esophageal reflux disease without esophagitis
CPT/HCPCS: J3490; J7030; Q0092

== ENCOUNTER 2019-07-12 01:02 | Emergency (ER) | payer OTHER ==
[~2019-07-12] VITALS: Ht 167.6 cm; Wt 68.0 kg
[2019-07-12 01:09] VITALS: Ht 167.6 cm; Wt 68.0 kg
[2019-07-12 02:20] LABS: BASOPHIL % 0.5 % (0-2)
[2019-07-12 02:24] LABS: RED CELL DISTRIBUTION WIDTH 22.8 % (11.5-14.5)
[2019-07-12 02:25] LABS: PLATELET COUNT 535 x10^3mcL (130-400)
[2019-07-12 02:32] LABS: CARBON DIOXIDE 27.8 mmol/L (21-32); CHLORIDE SERUM 105 mmol/L (98-107); CREATININE SERUM 1.1 mg/dL (0.7-1.3); GFR1 > 60 mL/min; GLUCOSE SERUM 124 mg/dL (74-106); POTASSIUM SERUM 4.1 mmol/L (3.5-5.1); SODIUM SERUM 144 mmol/L (136-145)
[2019-07-12 02:34] LABS: rbc morphology (normal/abnorm) ABNORMAL (NORMAL); target cell (codocyte) 1+
[2019-07-12 02:36] LABS: ALBUMIN 3.4 g/dL (3.4-5.0); ALKALINE PHOSPHATASE 67 U/L (46-116); ALT/SGPT 20 U/L (16-63); AST/SGOT 14 U/L (15-37); BILIRUBIN TOTAL 0.21 mg/dL (0.20-1.00); LIPASE 87 IU/L (73-393); TOTAL PROTEIN, SERUM 6.3 g/dL (6.4-8.2)
[2019-07-12 03:18] VITALS: BP 114/77
== END 2019-07-12 03:18 | disposition home or self-care (01) ==
LOC: ED 01:02
PROVIDERS: Emergency Medicine
DX: K29.00 Acute gastritis without bleeding (principal); K21.9 Gastro-esophageal reflux disease without esophagitis
CPT/HCPCS: J2270; J2405; J7030

== ENCOUNTER 2019-08-07 18:47 | Emergency (ER) | payer OTHER ==
[~2019-08-07] VITALS: Ht 170.2 cm; Wt 68.5 kg
[2019-08-07 19:34] VITALS: Ht 170.2 cm; Wt 68.5 kg
[2019-08-07 20:16] LABS: BASOPHIL % 0.7 % (0-2)
[2019-08-07 20:20] LABS: CALCIUM 8.4 mg/dL (8.5-10.1); CARBON DIOXIDE 33.1 mmol/L (21-32); CHLORIDE SERUM 104 mmol/L (98-107); CREATININE SERUM 1.1 mg/dL (0.7-1.3); GFR1 > 60 mL/min; GLUCOSE SERUM 108 mg/dL (74-106); SODIUM SERUM 141 mmol/L (136-145)
[2019-08-07 20:26] LABS: ALBUMIN 3.5 g/dL (3.4-5.0); ALKALINE PHOSPHATASE 70 U/L (46-116); ALT/SGPT 18 U/L (16-63); AST/SGOT 15 U/L (15-37); BILIRUBIN TOTAL 0.2 mg/dL (0.20-1.00); LIPASE 104 IU/L (73-393); TOTAL PROTEIN, SERUM 6.8 g/dL (6.4-8.2)
[2019-08-07 20:40] LABS: PLATELET COUNT 597 x10^3mcL (130-400); RED CELL DISTRIBUTION WIDTH 27.8 % (11.5-14.5)
[2019-08-07 20:59] LABS: rbc morphology (normal/abnorm) ABNORMAL (NORMAL)
[2019-08-07 22:17] VITALS: BP 125/80
== END 2019-08-07 22:17 | disposition home or self-care (01) ==
LOC: ED 18:47
PROVIDERS: Emergency Medicine
DX: R10.13 Epigastric pain (principal); R11.10 Vomiting, unspecified
CPT/HCPCS: J2270; J2405; J3490; J7030

== ENCOUNTER 2019-08-27 02:01 | Emergency (ER) | payer OTHER ==
[~2019-08-27] VITALS: Ht 167.6 cm; Wt 68.9 kg
[2019-08-27 02:04] VITALS: Ht 167.6 cm; Wt 68.9 kg
[2019-08-27 03:16] LABS: CALCIUM 7.3 mg/dL (8.5-10.1); CARBON DIOXIDE 30.4 mmol/L (21-32); CHLORIDE SERUM 104 mmol/L (98-107); GFR1 > 60 mL/min; GLUCOSE SERUM 106 mg/dL (74-106); POTASSIUM SERUM 4.3 mmol/L (3.5-5.1); SODIUM SERUM 140 mmol/L (136-145)
[2019-08-27 03:21] LABS: AMPHETAMINE QUAL UR POSITIVE (See below)
[2019-08-27 03:22] LABS: ALBUMIN 3.3 g/dL (3.4-5.0); ALKALINE PHOSPHATASE 68 U/L (46-116); ALT/SGPT 23 U/L (16-63); AST/SGOT 15 U/L (15-37); BILIRUBIN TOTAL 0.08 mg/dL (0.20-1.00); LIPASE 137 IU/L (73-393); TOTAL PROTEIN, SERUM 6.5 g/dL (6.4-8.2)
[2019-08-27 03:26] LABS: BASOPHIL % 0.4 % (0-2)
[2019-08-27 03:29] LABS: PLATELET COUNT 466 x10^3mcL (130-400); RED CELL DISTRIBUTION WIDTH 25.9 % (11.5-14.5)
[2019-08-27 03:31] LABS: rbc morphology (normal/abnorm) ABNORMAL (NORMAL)
[2019-08-27 07:43] VITALS: BP 129/75
== END 2019-08-27 07:43 | disposition home or self-care (01) ==
LOC: ED 02:01
PROVIDERS: Emergency Medicine
DX: R10.10 Upper abdominal pain, unspecified (principal); D64.9 Anemia, unspecified; K21.9 Gastro-esophageal reflux disease without esophagitis
CPT/HCPCS: J2270; J2405; J7030; J7050; P9016

== ENCOUNTER 2019-09-18 20:42 | Inpatient (IN) | payer OTHER ==
[~2019-09-18] VITALS: Ht 170.2 cm; Wt 68.9 kg
[2019-09-18 21:03] VITALS: Ht 170.2 cm; Wt 68.9 kg
[2019-09-18 21:24] LABS: BASOPHIL % 0.9 % (0-2)
[2019-09-18 21:29] LABS: CARBON DIOXIDE 31.8 mmol/L (21-32); CHLORIDE SERUM 104 mmol/L (98-107); GFR1 > 60 mL/min; GLUCOSE SERUM 112 mg/dL (74-106); POTASSIUM SERUM 4.5 mmol/L (3.5-5.1); SODIUM SERUM 141 mmol/L (136-145)
[2019-09-18 21:38] LABS: ALBUMIN 3.4 g/dL (3.4-5.0); ALKALINE PHOSPHATASE 75 U/L (46-116); ALT/SGPT 19 U/L (16-63); AST/SGOT 11 U/L (15-37); BILIRUBIN TOTAL 0.12 mg/dL (0.20-1.00); LIPASE 120 IU/L (73-393); TOTAL PROTEIN, SERUM 6.9 g/dL (6.4-8.2)
[2019-09-18 22:00] LABS: PLATELET COUNT 499 x10^3mcL (130-400); RED CELL DISTRIBUTION WIDTH 25.3 % (11.5-14.5)
[2019-09-18 22:14] LABS: ovalocyte/elliptocyte 1+; rbc morphology (normal/abnorm) ABNORMAL (NORMAL)
[2019-09-19] VITALS (9 sets, daily range): BP systolic 112–135; BP diastolic 71–81
[2019-09-19] MEDS ORDERED: RANITIDINE HYD300 MG PO (01:06)
[2019-09-19 01:10] LABS: microscopic required? NO
[2019-09-19 01:28] LABS: UA SPECIFIC GRAVITY 1.025 (1.005-1.035); urine erythrocyte NEGATIVE (NEGATIVE)
[2019-09-19 01:55] LABS: AMPHETAMINE QUAL UR POSITIVE (See below)
[2019-09-19 07:05] LABS: CALCIUM 7.7 mg/dL (8.5-10.1); CARBON DIOXIDE 28.8 mmol/L (21-32); CHLORIDE SERUM 105 mmol/L (98-107); CREATININE SERUM 0.7 mg/dL (0.7-1.3); GFR1 > 60 mL/min; GLUCOSE SERUM 90 mg/dL (74-106); MAGNESIUM 1.8 mg/dL (1.8-2.4); PHOSPHOROUS 3.5 mg/dL (2.5-4.9); POTASSIUM SERUM 3.6 mmol/L (3.5-5.1); SODIUM SERUM 141 mmol/L (136-145)
[2019-09-19 07:18] LABS: PLATELET COUNT 430 x10^3mcL (130-400); RED CELL DISTRIBUTION WIDTH 24.5 % (11.5-14.5); rbc morphology (normal/abnorm) ABNORMAL (NORMAL)
[2019-09-19 07:49] LABS: IRON 146 ug/dL (65-170); TOTAL IRON BINDING CAPACITY 382 ug/dL (250-450)
[2019-09-19] MEDS ORDERED: DUL10S RC (13:48)
[2019-09-19] MEDS ORDERED: PRI20 PO (13:49)
[2019-09-19] MEDS ORDERED: THO25 PO (13:50)
== END 2019-09-19 15:20 | disposition home or self-care (01) | DRG 241 ==
LOC: ED 20:42 → DU 23:58
PROVIDERS: Emergency Medicine; ADMIT Internal Medicine
PROC: 30233N1 Transfusion of Nonautologous Red Blood Cells into Peripheral Vein, Percutaneous Approach (ICD-10-PCS; principal; 2019-09-19)
DX: K29.71 Gastritis, unspecified, with bleeding (principal); N17.0 Acute kidney failure with tubular necrosis; E83.51 Hypocalcemia; F15.20 Other stimulant dependence, uncomplicated; D50.0 Iron deficiency anemia secondary to blood loss (chronic); E11.9 Type 2 diabetes mellitus without complications; F12.10 Cannabis abuse, uncomplicated; F17.210 Nicotine dependence, cigarettes, uncomplicated; K21.9 Gastro-esophageal reflux disease without esophagitis; K59.09 Other constipation; Z68.23 Body mass index [BMI] 23.0-23.9, adult
CPT/HCPCS: G0378; J2765; J3010; J3230; J3490; J7030; J7050; P9016; Q0092; Q0163

== ENCOUNTER 2019-10-03 19:18 | Inpatient (IN) | payer OTHER ==
[~2019-10-03] VITALS: Ht 170.2 cm; Wt 68.9 kg
[~2019-10-03 19:18] MED LIST changes: +DUL10S RC; +RANITIDINE HYD300 MG PO; +THO25 PO
[2019-10-03 19:45] VITALS: Ht 170.2 cm; Wt 68.9 kg
--- NOTE | 2019-10-03 19:49 | NUR ---
PT TO ROOM 3
--- NOTE | 2019-10-03 20:41 | NUR ---
PATIENT SEEN WITH COMPLAINT OF VOMITING, REPORTS GI BLEEDING FROM STOMACH ULCER. PATIENT SEEN WITH OCCASIONAL SPITTING UP CLEAR FLUIS , SMALL AMOUNT.. SEEN BY MD. SALINE LOCK INSERTED. FLUID BOLUS IS INFUSING. PATIENT MEDICATED WITH MORPHINE AND ZOFRAN THEM A GI COCKTAIL WAS GIVEN. PATIENT INSTRUCTED TO GIVE URINE.
[2019-10-03 20:50] LABS: BASOPHIL % 0.7 % (0-2); PLATELET COUNT 651 x10^3mcL (130-400); RED CELL DISTRIBUTION WIDTH 25.5 % (11.5-14.5)
--- NOTE | 2019-10-03 20:55 | NUR ---
PATIENT WENT FOR XRAY.
[2019-10-03 21:17] LABS: CALCIUM 7.7 mg/dL (8.5-10.1); CARBON DIOXIDE 29.5 mmol/L (21-32); CHLORIDE SERUM 101 mmol/L (98-107); GFR1 > 60 mL/min; GLUCOSE SERUM 118 mg/dL (74-106); POTASSIUM SERUM 3.7 mmol/L (3.5-5.1); SODIUM SERUM 136 mmol/L (136-145)
[2019-10-03 21:21] LABS: ALBUMIN 2.9 g/dL (3.4-5.0); ALKALINE PHOSPHATASE 60 U/L (46-116); ALT/SGPT 16 U/L (16-63); AST/SGOT 10 U/L (15-37); BILIRUBIN TOTAL 0.15 mg/dL (0.20-1.00); LIPASE 114 IU/L (73-393)
[2019-10-03 21:31] LABS: rbc morphology (normal/abnorm) ABNORMAL (NORMAL)
--- NOTE | 2019-10-03 22:02 | NUR ---
REPORT WAS GIVEN TO SHERITA, PATIENT TRANSPORTED TO ROOM 234B
[2019-10-03 23:08] VITALS: BP 115/77
--- NOTE | 2019-10-03 23:17 | NUR ---
RECEIVED PT FROM ER, PT ADMIT FOR GI BLEED, ANEMIA, PT IS A/O X4, VERBAL RESPONSIVE, LUNG SOUND CLEAR BILATERAL, NO COUGH, NO SOB, PT IS ON TELE 21, NSR, DENY ANY CHEST PAIN OR DISCOMFORT, BOWEL SOUND PRESENT ALL 4 QUADRANTS, NO DISTENTION, NO TENDER. C/O BLACK STOOL. PEDAL PULSE PRESENT BOTH FEET, NO EDEMA, IV AT RIGHT AC, NO LEAKING, NO INFILTRAITON. ALL ADLS ASSIST, ALL NEED MET, CALL LIGHT IN REACH, WILL CONTINUE TO MONITOR.
[2019-10-03 23:35] VITALS: BP 123/77
--- NOTE | 2019-10-03 23:45 | NUR ---
PT AWAKE AND ALERT WITH GIRLFRIEND AT BEDSIDE. PT DENIES ABDOMINAL PAIN THUS FAR. C/O BURPING FOR 3 DAYS. BLOOD TRANSFUSION OF PRBC STARTED ON THE PT. VITAL SIGNS STABLE. WILL CONTINUE TO MONITOR.
[2019-10-04] VITALS (7 sets, daily range): BP systolic 96–141; BP diastolic 63–76
--- NOTE | 2019-10-04 | NUR ---
PT WITH BLOOD TRANSFUSION FOR 15 MINUTES. NO ADVERSE REACTION NOTED. WILL CONTINUE TO MONITOR.
--- NOTE | 2019-10-04 03:15 | NUR ---
PATIENTS BLOOD TRANSFUSION DONE. NO ADVERSE REACTION NOTED. VITAL SIGNS STABLE. MADE PT COMFORTABLE. WILL CONTINUE TO MONITOR.
--- NOTE | 2019-10-04 05:24 | NUR ---
PT C/O ABDOMINAL PAIN. GAVE PT MORPHINE IVP. PT TOLERATED IT WELL. WILL CONTINUE TO MONITOR.
--- NOTE | 2019-10-04 06:10 | NUR ---
PT RESTING WITH EYES CLOSED. EASILY AROUSABLE WITH VERBAL STIMULI. NO C/O ABDOMINAL PAIN THUS FAR. PT CURRENTLY STILL ON BLOOD TRANSFUSION. WILL CONTINUE TO MONITOR.
--- NOTE | 2019-10-04 06:36 | NUR ---
SPOKE WITH GRETTA OF CT. THEY ARE ASKING IF THE PT CAN GO DOWN TO GET CT SCAN. ASKED THEM IF THE PT CAN GO DOWN WHILE HAVING BLOOD TRANSFUSION. PER GRETTA TO CALL CT TO HOUSE WRECKER THE PT AFTER PT IS DONE WITH BLOOD TRNASFUSION. WILL ENDORSE TO THE AM NURSE ACCORDINGLY.
--- NOTE | 2019-10-04 07:00 | NUR ---
RECEIVED REPORT FROM MARY LOU RN AT BEDSIDE, PT RESTING IN BED IN NO ACUTE DISTRESS
--- NOTE | 2019-10-04 07:24 | NUR ---
PT RESTING IN BED, IN NO ACUTE DISTRESS, VERBAL, ABLE TO MAKE NEEDS KNOWN, CALM AND COPPERATIVE, NPO, PERRLA, NO REDNESS/DRAINGE, NO FACIAL DROOP/SLURRED SPEECH, RESP EVEN, NO SOB/COUGH, RA, LUNGS CTA, TELE #21, NSR, HR-105, DENIED CP/PALPITATION, ABD ROUND AND MILD TENDER TO TOUCH TO LOWER ABD, REPORTED MILD ABD PAIN/DISCOMFORT AT THIS TIME BUT TOLERABLE, SKIN C/D/W, SEE SKIN ASSESSMENT, BS HYPOACTIVE X 4, PALP PULSES, CAP REFILL < 2S, CONTINENT, AMBULATORY, GENERALIZED WEAKNESS, EQUAL HAND HELIUM ARC WELDER, IV PATENT AND INFUSING WELL, BLOOD TRANSFUSION AT THIS TIME, RATE 100ML/HR, O (+), APPROXIMATELY 75ML LEFT, NS PRIME, NO ASE NOTED AT THIS TIME, EDUCATED PT TO REPORT ASE D/T BLOOD TRANSFUSION, VERBALLY UNDERSTANDING, DRESSING CDI, ALL NEEDS ADDRESSED AT THIS TIME, SAFETY PROTOCOL FOLLOWED, COMFORT MEASURE PROVIDED, CONTINUE TO MONITOR
--- NOTE | 2019-10-04 07:58 | NUR ---
BLOOD TRANSFUSION FINISHED, PT IN NO ACUTE DISTRESS, V/S: 124/69 (80), 81, 98% AT RA, 0, 98.4, 20, CALLED CT FOR STAT CT ABD/PELVIS ORDER, SAID WILL COME TO TRASNPORT PT CARRI, PT MADE AWARE, CHARGE NURSE ABIGAIL MADE AWARE, CONTINUE TO MONITOR
--- NOTE | 2019-10-04 08:08 | NUR ---
PT WENT FOR CT SCAN VIA WC, ASSISTED BY TECH STAFF, PT IN NO ACUTE DISTRESS, HEPLOCKED
--- NOTE | 2019-10-04 08:30 | NUR ---
PT BACK ROM ST SCAN, IN NO ACUTE DISTRESS, CALLED LAB FOR BLOOD DRAW POST-TRANSFUSION PER POLICY, PT MADE AWARE, CHARGE NURSE SONNY MADE AWARE
--- NOTE | 2019-10-04 08:59 | NUR ---
AM MEDs GIVEN PER MD ORDER VIA EMAR, TOLERATED WELL, NO ASE NOTED AT THIS ITME, EDUCATED PT R/T MEDs, ASE AND MONITOR, VERBALLY UNDERSTANDING, ALL NEEDS ADDRESSED, CONTINUE TO MONITOR
--- NOTE | 2019-10-04 09:14 | NUR ---
PT MADE AWARE OF STOOL OB ORDER, STOOL COLLECTING HAT AND CUP PROVIDED, SAID WILL NOTIFY NURSING STAFF WHEN HAVING BM, PT RESTING IN BED, HICCUP, DR FLORENCE PAGED AND MADE AWARE, AWAITING FOR CALLING BACK, CHARGE NURSE SONNY MADE AWARE
[2019-10-04 09:20] LABS: CALCIUM 7.2 mg/dL (8.5-10.1); CARBON DIOXIDE 30.2 mmol/L (21-32); CHLORIDE SERUM 99 mmol/L (98-107); GFR1 > 60 mL/min; GLUCOSE SERUM 94 mg/dL (74-106); MAGNESIUM 1.8 mg/dL (1.8-2.4); PHOSPHOROUS 3.6 mg/dL (2.5-4.9); POTASSIUM SERUM 3.6 mmol/L (3.5-5.1); SODIUM SERUM 137 mmol/L (136-145)
[2019-10-04 09:45] LABS: BASOPHIL % 0.5 % (0-2)
[2019-10-04 09:48] LABS: PLATELET COUNT 572 x10^3mcL (130-400); RED CELL DISTRIBUTION WIDTH 24.9 % (11.5-14.5)
[2019-10-04 09:54] LABS: rbc morphology (normal/abnorm) ABNORMAL (NORMAL)
--- NOTE | 2019-10-04 11:19 | NUR ---
PT MADE AWARE OF [facility] ORDER, COLLECTING CUP PROVIDED AT BEDSIDE W/ VERBAL INSTRUCTION, SAID WILL NOTIFY NURSING STAFF WHEN HAVING URINE SAMPLE, PT RESTING IN BED IN NO ACUTE DISTRESS, CONTINUE TO MONITOR
--- NOTE | 2019-10-04 12:43 | NUR ---
PT SEEN BY DR SCHULTZ GI SPECIALIST, EGD CONSENT SIGNED AND KEPT IN CHART, PREP-LIST DONE, NO FURTHER CONCERN NEEDED WHEN ASKED AT THIS TIME, FAMILY AT BEDSIDE, PT RESUMED FULL LIQUID DIET AT LUNCH AND DINNER, TOLERATED WELL, NPO AFTER MIDNIGHT, VERBALLY UNDERSTANDING, CHARGE NURSE SONNY MADE AWARE, CONTINUE TO MONITOR
--- NOTE | 2019-10-04 13:25 | NUR ---
URINE COLLECTED FOR [facility] ORDER, SENT TO LAB, PT AND FAMILY MADE AWARE, CONTINUE TO MONITOR
[2019-10-04 15:09] LABS: microscopic required? NO
[2019-10-04 15:14] LABS: urine erythrocyte NEGATIVE (NEGATIVE)
[2019-10-04 15:30] LABS: AMPHETAMINE QUAL UR POSITIVE (See below)
--- NOTE | 2019-10-04 17:16 | NUR ---
PT RESTING IN BED, IN NO ACUTE DISTRESS, RESP EVEN, CALM AND COPPERATIVE, DENIED CP/PALPITATION, DENIED N/V/D, DENIED PAIN/ULLOA, NO BM AT THIS TIME FOR STOOL OB SAMPLE, IV PATENT AND INFUSING WELL, DRESSING CDI, SAFETY PROTOCOL FOLLOWED, COMFORT MEASURE PROVIDED, WILL ENDORSE TO ONCOMING RN
--- NOTE | 2019-10-04 19:26 | NUR ---
PT CURRENTLY RESTING IN BED, NO ACUTE DISTRESS. A/O X4. TELE #21 SHOWING SINUS TACHYCARDIA, DENIES CHEST PAIN. PULSES PALPABLE IN ALL EXTREMITIES, NO EDEMA NOTED. LUNG SOUNDS CTA BILATERALLY, DENIES SOB. BOWEL SOUNDS ACTIVE, LAST BM 10/03/19, PT REPORTS PREVIOUS BLACK STOOL, NO ACTIVE BLEEDING NOTED AT THIS TIME. VOIDING WELL. AMBULATORY. SKIN INTACT. IV PATENT AND INTACT. BED IN LOWEST POSITION, SIDE RAILS UP X2, CALL LIGHT WITHIN REACH. WILL CONTINUE TO MONITOR.
--- NOTE | 2019-10-04 23:02 | NUR ---
PT CURRENTLY RESTING IN BED, NO ACUTE DISTRESS. WILL CONTINUE TO MONITOR.
[2019-10-05 04:48] VITALS: BP 99/66
--- NOTE | 2019-10-05 06:25 | NUR ---
PT SLEPT PERIODICALLY THROUGHOUT NIGHT, NO ACUTE DISTRESS. ALL NEEDS MET AND ATTENDED TO. NO SIGNIFICANT CHANGES. IV PATENT AND INTACT. BED IN LOWEST POSITION, SIDE RAILS UP X2, CALL LIGHT WITHIN REACH. WILL ENDORSE CARE TO ONCOMING NURSE.
[2019-10-05 07:08] LABS: BASOPHIL % 0.1 % (0-2)
[2019-10-05 07:22] LABS: CALCIUM 7.9 mg/dL (8.5-10.1); CARBON DIOXIDE 32.7 mmol/L (21-32); CHLORIDE SERUM 104 mmol/L (98-107); CREATININE SERUM 0.9 mg/dL (0.7-1.3); GFR1 > 60 mL/min; GLUCOSE SERUM 104 mg/dL (74-106); MAGNESIUM 2.3 mg/dL (1.8-2.4); PHOSPHOROUS 3.7 mg/dL (2.5-4.9); SODIUM SERUM 141 mmol/L (136-145)
[2019-10-05 07:30] LABS: PLATELET COUNT 529 x10^3mcL (130-400); RED CELL DISTRIBUTION WIDTH 24.8 % (11.5-14.5)
[2019-10-05 07:31] LABS: rbc morphology (normal/abnorm) ABNORMAL (NORMAL)
--- NOTE | 2019-10-05 08:13 | NUR ---
AT 0710 - RECECIVED PATIENT FROM NIGHT NURSE. AWAKE, ALERT AND ORIENTED X 4. MONITOR SHOWING SINUS RHYTHM; RATE 70'S. NO C/O PAIN AT THIS TIME. PATIENT IS NPO FOR EGD THIS AM. IV INFUSING D5 1/2 NS AT 80 ML/HR. AT 0755 - REPORT GIVEN TO GI LAB NURSE. PATIENT SIGNED MODERATE SEDATION CONSENT. PREPARED FOR PROCEDURE.
[2019-10-05 08:32] VITALS: BP 124/66
--- NOTE | 2019-10-05 09:36 | NUR ---
AT 0910 - PATIENT TAKEN TO GI LAB
[2019-10-05 10:20] VITALS: BP 119/82
--- NOTE | 2019-10-05 10:53 | NUR ---
AT 0920 - PATIENT BACK IN ROOM FOLLOWING EGD AND BIOPSY UNDER MODERATE SEDATION. PATIENT IS AWAKE, ALERT AND ORIENTED . SITTING UP IN BED. WHEN NURSE ENTERED ROOM PATIENT WAS ALREADY EATING FOOD THAT WAS BROUGHT IN BY HIS . ADVISED PATIENT OF HOSPITAL POLICY OF NO OUTSIDE FOOD. INSTRUCTED PATIENT TO CHEW WELL AND EAT SLOWLY. VS WNL. IV INFUSION OF D5 1/2 NS RESUMED AT 80 ML/HR. PALCED BACK ON CARDIAC MONITORING.
[2019-10-05 12:09] VITALS: BP 115/63
--- NOTE | 2019-10-05 14:24 | NUR ---
PATIETN RESTING QUIETLY. TOLERATING REGULAR DIET. NO C/O PAIN OR NAUSEA.
[2019-10-05 16:40] VITALS: BP 117/67
--- NOTE | 2019-10-05 18:53 | NUR ---
VSS. AFEBRILE. IV INFUSING D5 1/2 NS AT 80 ML/HR. TOELRATING REGULAR DIET. NO C/O PAIN OR NAUSEA. PATIENT HAD 1 LARGE DARK/BLACK FORMED STOOL. SPECIMEN TAKEN TO ALB FOR STOOL OB. WILL ENDORSE CARE TO NIGHT NURSE.
--- NOTE | 2019-10-05 20:30 | NUR ---
PT. MOSTLY DOZING, EASY TO WAKE. ORIENTED X4. DENIES HEADACHE OR DIZZINESS. BREATH SOUNDS CLEAR THROUGHOUT LUNG LERNER RESP. EVEN, UNLABORED, NO SOB NOTED. PT. ON RA. ABD. SOFT AND ROUND, BOWEL SOUNDS ACTIVE. DENIES ABD. PAIN, DENIES NAUSEA. NO EDEMA TO BLE, PEDAL PULSES STRONG. IV SITE INTACT. CALL LIGHT WITHIN REACH.
[2019-10-05 21:00] VITALS: BP 106/55
--- NOTE | 2019-10-06 00:29 | NUR ---
PT. AWAKE, REQUESTING SNACK WHICH WAS GIVEN. NO COMPLAINTS THUS FAR. IVF CONTINUES TO INFUSE. CALL LIGHT WITHIN REACH.
[2019-10-06 05:19] VITALS: BP 141/80
--- NOTE | 2019-10-06 06:08 | NUR ---
PT. BETWEEN SLEEP AND WAKE. EYES CLOSED. NO COMPLAINTS THROUGHOUT THE NIGHT. NO ACTIVE BLEEDING PER PT. IVF INFUSING WELL, SITE INTACT. CALL LIGHT WITHIN REACH. WILL ENDORSE PT. CARE TO INCOMING NURSE.
--- NOTE | 2019-10-06 07:30 | NUR ---
PT ENDORSE TO ME THIS MORNING, SITTING UP IN BED WATCHING TV. AA/O X4, BREATHING EVEN AND UNLABORED ON RA, NO ACUTE RESP DISTRESS OR SOB NOTED. TELE 21 DENIES ANY CP OR PRESSURE/ SHOWING SR. VOIDS FREELY. AMB. DENIES ANY ABD PAIN OR DISCOMFORT. IV TO THE RFA INTACT AND PATENT/ INFUSING AT 80ML/HR, NO REDNESS OR SWELLING NOTED. WILL CONTINUE TO MONITOR.
[2019-10-06 08:32] LABS: PLATELET COUNT 584 x10^3mcL (130-400)
[2019-10-06 08:33] LABS: RED CELL DISTRIBUTION WIDTH 24.2 % (11.5-14.5)
[2019-10-06 09:42] VITALS: BP 111/64
[2019-10-06 11:00] LABS: CALCIUM 7.7 mg/dL (8.5-10.1); CARBON DIOXIDE 29.6 mmol/L (21-32); CHLORIDE SERUM 104 mmol/L (98-107); CREATININE SERUM 0.8 mg/dL (0.7-1.3); GFR1 > 60 mL/min; GLUCOSE SERUM 107 mg/dL (74-106); POTASSIUM SERUM 3.7 mmol/L (3.5-5.1); SODIUM SERUM 139 mmol/L (136-145)
[2019-10-06] MEDS ORDERED: PHARMASSURE FO0.4 MG PO (11:07)
--- NOTE | 2019-10-06 11:07 | NUR ---
PT REFUSE TO WEAR TELE 21, STATED TRANSPLANT NURSE SAID HES BEING DC. TRANSPLANT NURSE SAWANT MADE AWARE. RETURNED BACK TO TELE.
--- NOTE | 2019-10-06 12:10 | NUR ---
EXPLAINED ALL DISCHARGE INSTRUCTION, NEW AND CONTINUED MEDS AND FOLLOW UP SINDHU PT HAS ON 10/[address] CHOW, PT AGREED AND SIGNED ALL DC PAPER WORK. REMOVED IV TO THE RFA/ CATHETER TIP INTACT/ TOLERATED REMOVAL WELL. PT DISCHARGED. MICHAEL TRIPLETT WALKED PT DOWN TO DISCHARGE LOBBY. PT DENIES ANY ABD PAIN OR DISCOMFORT. PT DISCHARGED HOME/ STATED WILL DRIVE HIM HOME.
[2019-10-06 12:41] LABS: ATYPICAL LYMPH 1 %; BAND NEUTROPHIL 0 % (0-10); BASOPHIL 0 % (0-2); MONOCYTE 4 % (0-7); SEGMENTED NEUTROPHILS 89 % (37-75); rbc morphology (normal/abnorm) ABNORMAL (NORMAL)
[2019-10-06 12:42] LABS: PLATELET MORPHOLOGY PLATELETS INCREASED
== END 2019-10-06 12:08 | disposition home or self-care (01) | DRG 241 ==
LOC: ED 19:18 → DU 21:30
PROVIDERS: Emergency Medicine; Internal Medicine; ADMIT General Practice
PROC: 30233N1 Transfusion of Nonautologous Red Blood Cells into Peripheral Vein, Percutaneous Approach (ICD-10-PCS; 2019-10-03)
PROC: 0DB78ZX Excision of Stomach, Pylorus, Via Natural or Artificial Opening Endoscopic, Diagnostic (ICD-10-PCS; principal; 2019-10-05 09:00)
DX: K29.01 Acute gastritis with bleeding (principal); N17.0 Acute kidney failure with tubular necrosis; E83.51 Hypocalcemia; D50.9 Iron deficiency anemia, unspecified; F12.10 Cannabis abuse, uncomplicated; D47.3 Essential (hemorrhagic) thrombocythemia; F15.10 Other stimulant abuse, uncomplicated; K21.9 Gastro-esophageal reflux disease without esophagitis; K44.9 Diaphragmatic hernia without obstruction or gangrene; K59.00 Constipation, unspecified; F17.210 Nicotine dependence, cigarettes, uncomplicated; Z79.899 Other long term (current) drug therapy
CPT/HCPCS: 43235; C9113; G0378; J1200; J1610; J2250; J2270; J2310; J2405; J3010; J3490; J7030; J7042; P9016; Q0161; Q0163

== ENCOUNTER 2020-01-01 08:03 | Inpatient (IN) | payer OTHER ==
[~2020-01-01] VITALS: Ht 175.3 cm; Wt 66.7 kg
[~2020-01-01 08:03] MED LIST changes: +PHARMASSURE FO0.4 MG PO
[2020-01-01 08:07] VITALS: Ht 175.3 cm; Wt 66.7 kg
[2020-01-01 09:47] LABS: BASOPHIL % 0 % (0-2); RED CELL DISTRIBUTION WIDTH 30.6 % (11.5-14.5)
[2020-01-01 09:59] LABS: CALCIUM 8.1 mg/dL (8.5-10.1); CARBON DIOXIDE 30.5 mmol/L (21-32); CHLORIDE SERUM 103 mmol/L (98-107); GFR1 > 60 mL/min; GLUCOSE SERUM 110 mg/dL (74-106); POTASSIUM SERUM 4.1 mmol/L (3.5-5.1); SODIUM SERUM 140 mmol/L (136-145)
[2020-01-01 10:03] LABS: ALKALINE PHOSPHATASE 60 U/L (46-116); ALT/SGPT 21 U/L (16-63); AST/SGOT 14 U/L (15-37); BILIRUBIN TOTAL 0.2 mg/dL (0.20-1.00); LIPASE 669 IU/L (73-393); TOTAL PROTEIN, SERUM 6.6 g/dL (6.4-8.2)
[2020-01-01 10:06] LABS: ALBUMIN 3.3 g/dL (3.4-5.0)
[2020-01-01 11:17] LABS: rbc morphology (normal/abnorm) ABNORMAL (NORMAL)
[2020-01-01 11:44] LABS: PLATELET COUNT 563 x10^3mcL (130-400)
[2020-01-01 11:56] LABS: AMPHETAMINE QUAL UR POSITIVE (See below)
[2020-01-01 12:36] LABS: T3 TOTAL 0.82 ng/mL
[2020-01-01 12:48] LABS: PHOSPHOROUS 4.3 mg/dL (2.5-4.9)
[2020-01-01 12:49] LABS: CHOLESTEROL/HDL RATIO 4.7
[2020-01-01 12:57] LABS: FREE T4 0.89 ng/dL (0.76-1.46); FREE THYROXINE INDEX 2.3 ug/dL (1.4-4.5); T4(THYROXINE) 6.9 ug/dL (4.7-13.3)
[2020-01-01 13:16] VITALS: BP 119/67
[2020-01-01 17:26] VITALS: BP 112/64
[2020-01-02 01:25] LABS: BASOPHIL % 1.3 % (0-2)
[2020-01-02 01:30] LABS: PLATELET COUNT 498 x10^3mcL (130-400)
[2020-01-02 01:55] LABS: ovalocyte/elliptocyte 1+; rbc morphology (normal/abnorm) ABNORMAL (NORMAL)
[2020-01-02 06:08] VITALS: BP 132/63
[2020-01-02 07:53] LABS: CALCIUM 7.8 mg/dL (8.5-10.1); CARBON DIOXIDE 27.1 mmol/L (21-32); CHLORIDE SERUM 104 mmol/L (98-107); CREATININE SERUM 0.8 mg/dL (0.7-1.3); GFR1 > 60 mL/min; GLUCOSE SERUM 87 mg/dL (74-106); POTASSIUM SERUM 3.6 mmol/L (3.5-5.1); SODIUM SERUM 138 mmol/L (136-145)
[2020-01-02 08:14] VITALS: BP 124/77
[2020-01-02 08:41] LABS: PLATELET COUNT 442 x10^3mcL (130-400); RED CELL DISTRIBUTION WIDTH 28.5 % (11.5-14.5)
[2020-01-02 13:08] VITALS: BP 132/86
[2020-01-02 17:01] VITALS: BP 126/72
[2020-01-02 21:36] VITALS: BP 111/53
[2020-01-03 06:10] VITALS: BP 112/76
[2020-01-03 06:35] LABS: CALCIUM 7.9 mg/dL (8.5-10.1); CARBON DIOXIDE 28.3 mmol/L (21-32); CHLORIDE SERUM 106 mmol/L (98-107); CREATININE SERUM 0.8 mg/dL (0.7-1.3); GFR1 > 60 mL/min; GLUCOSE SERUM 99 mg/dL (74-106); SODIUM SERUM 141 mmol/L (136-145)
[2020-01-03 06:41] LABS: BASOPHIL % 0.7 % (0-2)
[2020-01-03 07:23] VITALS: BP 102/56
[2020-01-03 07:41] LABS: RED CELL DISTRIBUTION WIDTH 27.6 % (11.5-14.5)
[2020-01-03] MEDS ORDERED: ATORVASTATIN CA40 M1 PO (08:16)
[2020-01-03] MEDS ORDERED: FERROUS SULFAT325 M2 PO (08:16)
[2020-01-03] MEDS ORDERED: RANITIDINE HYD300 MG PO (08:17)
[2020-01-03] MEDS ORDERED: PRI20 PO (08:17)
[2020-01-03 09:42] VITALS: BP 102/56
[2020-01-03 12:47] LABS: rbc morphology (normal/abnorm) ABNORMAL (NORMAL)
[2020-01-03 12:51] LABS: ovalocyte/elliptocyte 1+
[2020-01-03 12:52] LABS: PLATELET COUNT 511 x10^3mcL (130-400)
== END 2020-01-03 10:12 | disposition home or self-care (01) | DRG 241 ==
LOC: ED 08:03 → DU 11:39
PROVIDERS: Emergency Medicine; ADMIT Family Medicine
PROC: 30233N1 Transfusion of Nonautologous Red Blood Cells into Peripheral Vein, Percutaneous Approach (ICD-10-PCS; principal; 2020-01-01)
PROC: 0DJ08ZZ Inspection of Upper Intestinal Tract, Via Natural or Artificial Opening Endoscopic (ICD-10-PCS; 2020-01-02)
DX: K29.01 Acute gastritis with bleeding (principal); N17.0 Acute kidney failure with tubular necrosis; K85.90 Acute pancreatitis without necrosis or infection, unspecified; F12.10 Cannabis abuse, uncomplicated; F15.10 Other stimulant abuse, uncomplicated; D50.0 Iron deficiency anemia secondary to blood loss (chronic); K21.9 Gastro-esophageal reflux disease without esophagitis; Z71.51 Drug abuse counseling and surveillance of drug abuser
CPT/HCPCS: 43235; 84439; C9113; G0378; G0480; J1200; J1610; J2250; J2270; J2310; J2405; J2765; J2916; J3010; J3490; J7030; J7050; J8597; P9016; Q0161